=== PATIENT | male | born 1960 | race Caucasian/White ===

== ENCOUNTER 2024-05-22 02:02 | Emergency (ER) | payer MEDICARE, MEDICAID ==
[~2024-05-22] VITALS: Ht 182.9 cm; Wt 100.0 kg
[2024-05-22 02:05] VITALS: O2SAT 100
[2024-05-22 02:33] VITALS: TEMP 37.05852
[2024-05-22 03:13] LABS: CHLORIDE 109 mEq/L (98-107); POTASSIUM 4.4 mEq/L (3.5-5.1); SODIUM 142 mEq/L (136-145)
[2024-05-22 03:14] LABS: CALCIUM 9.2 mg/dL (8.7-10.4); CARBON DIOXIDE 27 mEq/L (21-32)
[2024-05-22 03:19] LABS: CREATININE 0.9 mg/dL (0.6-1.3); GLUCOSE 122 mg/dL (70-105); UREA NITROGEN BLOOD 10 mg/dL (9-23)
[2024-05-22 03:20] LABS: TROPONIN I HIGH SENSITIVITY 7 ng/L (3.0-53)
[2024-05-22 04:16] LABS: BASOPHILS % 0.6 % (0.0-2.0); EOSINOPHILS % 2.6 % (0.0-5.0); HEMATOCRIT. 42.5 % (42.0-52.0); HEMOGLOBIN. 14.6 g/dL (14.0-18.0); LYMPHOCYTES % 27.8 % (20.0-50.0); MEAN CORPUSCULAR HEMOGLOBIN 32.1 pg (28.0-32.0); MEAN CORPUSCULAR HGB CONC 34.3 g/dL (31.0-37.0); MEAN CORPUSCULAR VOLUME 93.7 fL (80.0-94.0); MEAN PLATELET VOLUME 9.2 fl (7.4-10.4); MONOCYTES % 9.9 % (2.0-8.0); NEUTROPHILS % 59.1 % (40.0-76.0); PLATELET 175 x1000/uL (130-400); RED BLOOD CELL COUNT 4.53 mill/uL (4.7-6.1); RED CELL DISTRIBUTION WIDTH 13.5 % (11.6-14.6)
[2024-05-22 05:42] VITALS: BP 147/66; PULSE 76; RESP 14; O2SAT 98
== END 2024-05-22 05:42 | disposition home or self-care (01) ==
LOC: ER 02:09
DX: R07.9 Chest pain, unspecified (principal); I10 Essential (primary) hypertension; Z86.73 Personal history of transient ischemic attack (TIA), and cerebral infarction without residual deficits; F10.90 Alcohol use, unspecified, uncomplicated; Y90.9 Presence of alcohol in blood, level not specified
CPT/HCPCS: 36415; 71045; 80048; 83880; 84484; 85025; 93005; 99285

== ENCOUNTER 2024-10-04 17:08 | Emergency (ER) | payer MEDICARE, MEDICAID ==
[~2024-10-04] VITALS: Ht 175.3 cm; Wt 95.0 kg
[2024-10-04 19:13] VITALS: TEMP 36.8
[2024-10-04 21:46] LABS: BASOPHILS % 0.6 % (0.0-2.0); HEMATOCRIT. 43.1 % (42.0-52.0); HEMOGLOBIN. 14.6 g/dL (14.0-18.0); MEAN CORPUSCULAR HEMOGLOBIN 30.9 pg (28.0-32.0); MEAN CORPUSCULAR HGB CONC 33.8 g/dL (31.0-37.0); MEAN CORPUSCULAR VOLUME 91.5 fL (80.0-94.0); MEAN PLATELET VOLUME 8.7 fl (7.4-10.4); MONOCYTES % 10.5 % (2.0-8.0); NEUTROPHILS % 76.9 % (40.0-76.0); PLATELET 159 x1000/uL (130-400); RED BLOOD CELL COUNT 4.71 mill/uL (4.7-6.1); RED CELL DISTRIBUTION WIDTH 13.7 % (11.6-14.6); WHITE BLOOD COUNT 11.5 x1000/uL (4.5-11.0)
[2024-10-04 21:51] LABS: CHLORIDE 103 mEq/L (98-107); POTASSIUM 3.8 mEq/L (3.5-5.1); SODIUM 137 mEq/L (136-145)
[2024-10-04 21:52] LABS: CARBON DIOXIDE 24 mEq/L (21-32)
[2024-10-04 21:53] LABS: CALCIUM 9.3 mg/dL (8.7-10.4)
[2024-10-04] MEDS: KETOROLAC 30MG/ML VIAL IM ONE (21:53)
[2024-10-04 21:57] LABS: CREATININE 0.9 mg/dL (0.6-1.3); GLUCOSE 117 mg/dL (70-105)
[2024-10-04 21:58] LABS: UREA NITROGEN BLOOD 12 mg/dL (9-23)
[2024-10-04 21:59] LABS: ALANINE AMINOTRANSFERASE 67 IU/L (10-49); ALBUMIN 4.1 g/dL (3.2-4.8); ASPARTATE AMINOTRANSFERASE 66 IU/L (<34); BILIRUBIN DIRECT 0.3 mg/dL (<=3.0)
[2024-10-04 22:00] LABS: BILIRUBIN TOTAL 0.9 mg/dL (0.1-1.0); PROTEIN TOTAL 7.5 g/dL (6.0-8.3)
[2024-10-04] MEDS: DEXAMETHASONE 4MG TABLET PO ONE (22:09)
[2024-10-04 22:45] VITALS: PULSE 96; RESP 20; O2SAT 94
[2024-10-04] MEDS: IPRATROPIUM BROMIDE (0.02%) 0.5MG/2.5ML NEB HHN STA (22:45)
[2024-10-04] MEDS: ALBUTEROL (0.083%) 2.5MG/3ML NEB HHN STA (22:45)
[2024-10-04] MEDS ORDERED: BENZ200C52 MT (23:16)
[2024-10-04] MEDS ORDERED: KETO10TA2 MT (23:16)
[2024-10-04 23:31] VITALS: BP 138/72; PULSE 94; RESP 12; O2SAT 96
== END 2024-10-04 23:36 | disposition home or self-care (01) ==
LOC: ER 17:16
DX: J06.9 Acute upper respiratory infection, unspecified (principal); R05.9 Cough, unspecified; I10 Essential (primary) hypertension; Z86.73 Personal history of transient ischemic attack (TIA), and cerebral infarction without residual deficits
CPT/HCPCS: 99285; 71045; 80076; 80048; 83690; 85025; 36415; 94640; 96372; J1885; J8540